=== PATIENT | female | born 1950 | race African-American/Black ===

== ENCOUNTER 2017-07-31 06:49 | Inpatient (IN) | payer MEDICARE, MEDICAID ==
[2017-07-31] VITALS (8 sets, daily range): BP systolic 109–129; BP diastolic 67–87
[~2017-07-31] VITALS: Ht 160 cm; Wt 100.8 kg
[~2017-07-31 06:49] MED LIST: AMLO5TAB88 PO; ASPI-867 PO; CARV3.1242 PO; CELE200C; CLOP75TA16 PO; DOCU-150 PO; HYDR25SU7 RC; OLME40TA12 PO; OMEP40CA34 PO; SENN8.6T71 PO
[2017-07-31] MEDS ORDERED: ASPIRIN 325MG EC TABLET PO ONE (07:45)
[2017-07-31 08:04] LABS: BASOPHILS % 0.6 % (0.0-2.0); EOSINOPHILS % 1.2 % (0.0-5.0); HEMATOCRIT. 34.9 % (36.0-48.0); HEMOGLOBIN. 11.1 g/dL (12.0-16.0); LYMPHOCYTES % 13.1 % (20.0-50.0); MEAN CORPUSCULAR HEMOGLOBIN 27.4 pg (28.0-32.0); MEAN CORPUSCULAR VOLUME 86.2 fL (81.0-99.0); MEAN PLATELET VOLUME 9.7 fl (7.4-10.4); MONOCYTES % 7.2 % (2.0-8.0); NEUTROPHILS % 77.9 % (40.0-76.0); PLATELET 170 x1000/uL (130-400); RED BLOOD CELL COUNT 4.06 mill/uL (4.2-5.4)
[2017-07-31 08:11] LABS: PROTHROMBIN TIME 10.6 sec (9.4-11.6)
[2017-07-31 08:19] LABS: CARBON DIOXIDE 25 mEq/L (21-32); CHLORIDE 111 mEq/L (98-107)
[2017-07-31] MEDS ORDERED: IODIXANOL 320MG/ML 100 ML BOTTLE IV ONE ×2 (10:29→11:48)
[2017-07-31] MEDS ORDERED: LIDOCAINE HCL 1% 20ML VIAL (Pyxis) INJ ONE (10:30)
[2017-07-31] MEDS ORDERED: HYDRALAZINE 20MG/ML VIAL ONE (11:03)
[2017-07-31] MEDS ORDERED: FENTANYL CITRATE/PF 50MCG/ML 2ML VIAL ONE (11:05)
[2017-07-31] MEDS ORDERED: MIDAZOLAM HCL 2 MG/2 ML VIAL ONE (11:05)
[2017-07-31] MEDS ORDERED: IOVERSOL 240MG/ML 100ML BOTTLE IV ONE (11:30)
[2017-07-31] MEDS ORDERED: ATROPINE SULFATE 0.1MG/ML 10ML DISP.SYRIN ONE (11:35)
[2017-07-31] MEDS ORDERED: ATROPINE SULFATE 1MG/10ML SYR IV PRN (13:00)
[2017-07-31] MEDS ORDERED: ONDANSETRON HCL 4MG/2ML VIAL IV PRN (13:00)
[2017-07-31] MEDS ORDERED: CLOPIDOGREL 75MG TABLET PO ONE (13:00)
[2017-07-31] MEDS ORDERED: MORPHINE SULFATE 2 MG/ML CPJ (NOT FOR IM USE) IV PRN (13:00)
[2017-07-31] MEDS ORDERED: ACETAMINOPHEN 325MG TABLET PO PRN (13:00)
[2017-07-31] MEDS ORDERED: SODIUM CHLORIDE 0.45% 1,000 ML IV ONE (13:30)
[2017-07-31] MEDS ORDERED: LOSARTAN POTASSIUM 25 MG TABLET PO SCH (13:30)
[2017-07-31] MEDS ORDERED: NICARDIPINE 100MCG/ML 10ML VIAL (CATH LAB) IV ONE (15:13)
[2017-07-31] MEDS ORDERED: HEPARIN SODIUM 1,000 UNIT/1ML VIAL IV ONE (15:13)
[2017-07-31] MEDS ORDERED: NITROGLYCERIN 50MCG/ML 10ML VIAL (CATH LAB) IV ONE (15:13)
[2017-07-31] MEDS: LOSARTAN POTASSIUM 50 MG TABLET PO SCH (15:31)
[2017-07-31] MEDS: NEBIVOLOL HCL 5 MG TABLET PO SCH ×2 (15:43→20:46)
[2017-07-31] MEDS: AMLODIPINE 2.5MG TABLET PO SCH (20:46)
[2017-07-31] MEDS ORDERED: ATORVASTATIN CALCIUM 20MG TABLET PO SCH ×2 (21:00)
[2017-08-01] VITALS (10 sets, daily range): BP systolic 123–156; BP diastolic 59–87
[2017-08-01 05:48] LABS: CARBON DIOXIDE 26 mEq/L (21-32); CHLORIDE 110 mEq/L (98-107); CREATINE KINASE 77 IU/L (26-192); CREATINE KINASE MB FRACTION 2.6 ng/mL (0.5-3.6)
[2017-08-01 06:11] LABS: HDL CHOLESTEROL 47 mg/dL (40-59); LDL CHOLESTEROL 66 mg/dL (5-100)
[2017-08-01 06:23] LABS: BASOPHILS % 0.4 % (0.0-2.0); EOSINOPHILS % 1.3 % (0.0-5.0); HEMATOCRIT. 32.2 % (36.0-48.0); HEMOGLOBIN. 10.5 g/dL (12.0-16.0); LYMPHOCYTES % 19.5 % (20.0-50.0); MEAN CORPUSCULAR HEMOGLOBIN 28.1 pg (28.0-32.0); MEAN CORPUSCULAR VOLUME 86.4 fL (81.0-99.0); MONOCYTES % 9.9 % (2.0-8.0); NEUTROPHILS % 68.9 % (40.0-76.0); RED BLOOD CELL COUNT 3.73 mill/uL (4.2-5.4)
[2017-08-01 07:11] LABS: TROPONIN I 0.56 ng/mL (0.00-0.04)
[2017-08-01] MEDS: LOSARTAN POTASSIUM 50 MG TABLET PO SCH (08:46)
[2017-08-01] MEDS: NEBIVOLOL HCL 5 MG TABLET PO SCH (08:46)
[2017-08-01] MEDS: AMLODIPINE 2.5MG TABLET PO SCH (08:46)
[2017-08-01] MEDS ORDERED: CLOPIDOGREL 75MG TABLET PO SCH (09:00)
[2017-08-01] MEDS ORDERED: NEBIVOLOL HCL 5 MG TABLET PO SCH (09:00)
[2017-08-01] MEDS ORDERED: ASPIRIN 325MG TABLET PO SCH (09:00)
[2017-08-01 11:06] LABS: PLATELET 56 x1000/uL (130-400)
[2017-08-01] MEDS ORDERED: MAGNESIUM 2 G PREMIX 50 ML IV NR (12:30)
== END 2017-08-01 15:30 | disposition home or self-care (01) | DRG 247 ==
LOC: ER 06:49 → 3WST 06:50 → EDBEDREQTM 08:51 → EDBEDREQ 08:51 → ENRESERV 09:16
PROVIDERS: ADMIT Specialist; ATTEND Specialist
PROC: 027035Z Dilation of Coronary Artery, One Artery with Two Drug-eluting Intraluminal Devices, Percutaneous Approach (ICD-10-PCS; principal; 2017-07-31)
PROC: 4A023N7 Measurement of Cardiac Sampling and Pressure, Left Heart, Percutaneous Approach (ICD-10-PCS; 2017-07-31)
PROC: B2111ZZ Fluoroscopy of Multiple Coronary Arteries using Low Osmolar Contrast (ICD-10-PCS; 2017-07-31)
DX: I21.4 Non-ST elevation (NSTEMI) myocardial infarction (principal); E46 Unspecified protein-calorie malnutrition; D69.6 Thrombocytopenia, unspecified; I25.10 Atherosclerotic heart disease of native coronary artery without angina pectoris; D50.9 Iron deficiency anemia, unspecified; E66.9 Obesity, unspecified; E78.00 Pure hypercholesterolemia, unspecified; I11.9 Hypertensive heart disease without heart failure; I34.0 Nonrheumatic mitral (valve) insufficiency; Z96.649 Presence of unspecified artificial hip joint; K57.90 Diverticulosis of intestine, part unspecified, without perforation or abscess without bleeding; Z90.49 Acquired absence of other specified parts of digestive tract; Z79.82 Long term (current) use of aspirin; I25.2 Old myocardial infarction; Z98.61 Coronary angioplasty status; Z79.899 Other long term (current) drug therapy; Z88.0 Allergy status to penicillin; Z90.89 Acquired absence of other organs; Z68.39 Body mass index [BMI] 39.0-39.9, adult
CPT/HCPCS: 36415; 71010; 80053; 80061; 82550; 82553; 83735; 83880; 84484; 85025; 85049; 85347; 85379; 85610; 92928; 93005; 93458; 99285; C1725; C1769; C1887; C1893; J0360; J0461; J1644; J2250; J2270; J3010; J3475; J3490; J7050; Q9967

== ENCOUNTER 2021-10-23 14:21 | Inpatient (IN) | payer MEDICARE, MEDICAID ==
[~2021-10-23] VITALS: Ht 160 cm; Wt 84.4 kg
[~2021-10-23 14:21] MED LIST changes: -ASPI-867 PO; +CLOP-31 PO; -CLOP75TA16 PO; +OLME40TA11 PO; -OLME40TA12 PO; +OMEP40CA20 PO; -OMEP40CA34 PO
[2021-10-23] MEDS ORDERED: SODIUM CHLORIDE 0.9% 1000ML BAG (SEPSIS BOLUS) IV ONE (14:45)
[2021-10-23 15:57] LABS: CHLORIDE 110 mEq/L (98-107)
[2021-10-23 16:01] LABS: ETHANOL BLOOD < 10 mg/dL
[2021-10-23 16:05] LABS: MEAN CORPUSCULAR HEMOGLOBIN 26.8 pg (28.0-32.0); MEAN CORPUSCULAR VOLUME 85.9 fL (81.0-99.0); MEAN PLATELET VOLUME 8.4 fl (7.4-10.4); PLATELET 143 x1000/uL (130-400); RED BLOOD CELL COUNT 2.47 mill/uL (4.2-5.4); RED CELL DISTRIBUTION WIDTH 16.5 % (11.6-14.6)
[2021-10-23 16:15] LABS: HEMATOCRIT. 21.2 % (36.0-48.0); HEMOGLOBIN. 6.6 g/dL (12.0-16.0)
[2021-10-23] MEDS ORDERED: LEVOFLOXACIN 750MG PREMIX 150 ML IV ONE (16:30)
[2021-10-23] MEDS ORDERED: METRONIDAZOLE 500 MG PREMIX 100 ML IV ONE (16:30)
[2021-10-23 18:02] LABS: PLATELET ESTIMATE NORMAL
[2021-10-23] MEDS ORDERED: ACETAMINOPHEN 650MG SUPP PR PRN ×2 (19:00)
[2021-10-23] MEDS ORDERED: ACETAMINOPHEN 325MG TABLET PO PRN (19:00)
[2021-10-23] MEDS ORDERED: DOCUSATE SODIUM 100MG CAPSULE PO PRN (19:00)
[2021-10-23] MEDS ORDERED: IPRATROPIUM/ALBUTEROL 0.5-3(2.5)MG/3ML NEB HHN PRN (19:00)
[2021-10-23] MEDS ORDERED: GUAIFENESIN 200MG/10ML SUGAR FREE UDC PO PRN (19:00)
[2021-10-23] MEDS ORDERED: CLONIDINE 0.1MG TABLET PO PRN (19:00)
[2021-10-23] MEDS ORDERED: ONDANSETRON HCL 4MG/2ML INJ IV PRN (19:00)
[2021-10-23] MEDS ORDERED: DIPHENHYDRAMINE 50MG/ML VIAL IV PRN (19:00)
[2021-10-23] MEDS ORDERED: MAGNESIUM/ALUMINUM HYDROXIDE/SIMETHICONE 30ML UDC PO PRN (19:00)
[2021-10-23] MEDS ORDERED: NALOXONE HCL 0.4MG/ML VIAL IV PRN (19:30)
[2021-10-23] MEDS ORDERED: LEVOFLOXACIN 500MG PREMIX 100 ML IV NR (20:00)
[2021-10-23 21:30] VITALS: BP 126/69
[2021-10-23] MEDS ORDERED: METRONIDAZOLE 500 MG PREMIX 100 ML IV SCH (22:00)
[2021-10-24] VITALS (12 sets, daily range): BP systolic 110–146; BP diastolic 58–80
[2021-10-24] MEDS ORDERED: INFLUENZA VACCINE 05/PF 0.5 ML SYRINGE IM ONE (00:30)
[2021-10-24] MEDS ORDERED: PNEUMOCOCCAL 23-VAL P-SAC VAC 0.5 ML IM ONE (00:45)
[2021-10-24] MEDS: METRONIDAZOLE 500 MG PREMIX 100 ML IV SCH ×4 (01:06→21:32)
[2021-10-24] MEDS ORDERED: IOHEXOL-350 100 ML BOTTLE ONE (04:39)
[2021-10-24] MEDS ORDERED: IOHEXOL-300 100 ML BOTTLE ONE (04:40)
[2021-10-24] MEDS: ACETAMINOPHEN 325MG TABLET PO PRN (06:21)
[2021-10-24 07:10] LABS: CHLORIDE 112 mEq/L (98-107)
[2021-10-24 07:17] LABS: BASOPHILS % 0.4 % (0.0-2.0); EOSINOPHILS % 0.8 % (0.0-5.0); HEMATOCRIT. 24.6 % (36.0-48.0); HEMOGLOBIN. 8.2 g/dL (12.0-16.0); LYMPHOCYTES % 10.5 % (20.0-50.0); MEAN CORPUSCULAR HEMOGLOBIN 28.5 pg (28.0-32.0); MEAN CORPUSCULAR VOLUME 85.4 fL (81.0-99.0); MEAN PLATELET VOLUME 9.8 fl (7.4-10.4); MONOCYTES % 10.4 % (2.0-8.0); NEUTROPHILS % 77.9 % (40.0-76.0); PLATELET 209 x1000/uL (130-400); RED BLOOD CELL COUNT 2.88 mill/uL (4.2-5.4); RED CELL DISTRIBUTION WIDTH 15.6 % (11.6-14.6)
[2021-10-24 07:18] LABS: LDL CHOLESTEROL 65 mg/dL (5-100)
[2021-10-24 07:19] LABS: CREATINE KINASE 104 IU/L (26-192)
[2021-10-24 07:21] LABS: HDL CHOLESTEROL 58 mg/dL (40-59)
[2021-10-24] MEDS: LEVOFLOXACIN 250MG PREMIX 50 ML IV SCH (10:55)
[2021-10-24] MEDS: MORPHINE SULFATE 2 MG/ML CPJ (NOT FOR IM USE) IV PRN (11:00)
[2021-10-24] MEDS ORDERED: LEVOFLOXACIN 250MG PREMIX 50 ML IV SCH (11:00)
[2021-10-24] MEDS ORDERED: POTASSIUM CHLORIDE 20MEQ TABLET SR PO NR (13:15)
[2021-10-24] MEDS: PANTOPRAZOLE SODIUM 40 MG/VIAL IV SCH (18:23)
[2021-10-24 20:33] LABS: HEMOGLOBIN 7.9 g/dL (12.0-16.0)
[2021-10-24 21:29] LABS: VITAMIN B12 SERUM >2000 pg/mL pg/mL (211-911)
[2021-10-24] MEDS: ATORVASTATIN CALCIUM 20MG TABLET PO SCH (21:32)
[2021-10-24 21:36] LABS: FERRITIN 7 ng/mL (10-291)
[2021-10-25] VITALS (16 sets, daily range): BP systolic 103–144; BP diastolic 45–96
[2021-10-25 01:27] LABS: HEMATOCRIT 22.8 % (36.0-48.0); HEMOGLOBIN 7.6 g/dL (12.0-16.0)
[2021-10-25] MEDS: MORPHINE SULFATE 2 MG/ML CPJ (NOT FOR IM USE) IV PRN ×2 (06:04→23:55)
[2021-10-25] MEDS: METRONIDAZOLE 500 MG PREMIX 100 ML IV SCH ×3 (06:04→21:46)
[2021-10-25 06:45] LABS: BASOPHILS % 0.3 % (0.0-2.0); EOSINOPHILS % 1.6 % (0.0-5.0); HEMATOCRIT. 22.7 % (36.0-48.0); HEMOGLOBIN. 7.5 g/dL (12.0-16.0); LYMPHOCYTES % 15.1 % (20.0-50.0); MEAN CORPUSCULAR HEMOGLOBIN 28.2 pg (28.0-32.0); MEAN CORPUSCULAR VOLUME 85.1 fL (81.0-99.0); MONOCYTES % 12.6 % (2.0-8.0); NEUTROPHILS % 70.4 % (40.0-76.0); RED BLOOD CELL COUNT 2.66 mill/uL (4.2-5.4); RED CELL DISTRIBUTION WIDTH 15.9 % (11.6-14.6)
[2021-10-25 06:52] LABS: CHLORIDE 113 mEq/L (98-107)
[2021-10-25 07:06] LABS: TOTAL IRON BINDING CAPACITY 268 ug/dL (250-450)
[2021-10-25] MEDS: PANTOPRAZOLE SODIUM 40 MG/VIAL IV SCH ×2 (08:49→21:44)
[2021-10-25] MEDS: LEVOFLOXACIN 250MG PREMIX 50 ML IV SCH (13:19)
[2021-10-25] MEDS: ACETAMINOPHEN 325MG TABLET PO PRN (13:21)
[2021-10-25 14:25] LABS: HEMATOCRIT 26.6 % (36.0-48.0); HEMOGLOBIN 8.4 g/dL (12.0-16.0)
[2021-10-25 20:52] LABS: HEMATOCRIT 29.3 % (36.0-48.0); HEMOGLOBIN 9.6 g/dL (12.0-16.0)
[2021-10-25] MEDS: ATORVASTATIN CALCIUM 20MG TABLET PO SCH (21:44)
[2021-10-26] VITALS (11 sets, daily range): BP systolic 97–162; BP diastolic 56–111
[2021-10-26 00:51] LABS: HEMATOCRIT 27.9 % (36.0-48.0); HEMOGLOBIN 9.3 g/dL (12.0-16.0)
[2021-10-26] MEDS: METRONIDAZOLE 500 MG PREMIX 100 ML IV SCH ×3 (05:37→21:38)
[2021-10-26 06:33] LABS: BASOPHILS % 0.4 % (0.0-2.0); EOSINOPHILS % 1.9 % (0.0-5.0); HEMATOCRIT. 27.6 % (36.0-48.0); HEMOGLOBIN. 9.3 g/dL (12.0-16.0); LYMPHOCYTES % 11.3 % (20.0-50.0); MEAN CORPUSCULAR HEMOGLOBIN 28.2 pg (28.0-32.0); MEAN CORPUSCULAR VOLUME 83.7 fL (81.0-99.0); NEUTROPHILS % 76.4 % (40.0-76.0); RED BLOOD CELL COUNT 3.29 mill/uL (4.2-5.4); RED CELL DISTRIBUTION WIDTH 15.8 % (11.6-14.6)
[2021-10-26 06:42] LABS: CHLORIDE 111 mEq/L (98-107)
[2021-10-26] MEDS: PANTOPRAZOLE SODIUM 40 MG/VIAL IV SCH ×2 (10:15→21:38)
[2021-10-26] MEDS: DOCUSATE SODIUM 100MG CAPSULE PO SCH ×2 (10:15→16:06)
[2021-10-26] MEDS: METOCLOPRAMIDE HCL 10MG/2ML VIAL IV SCH ×2 (10:15→13:33)
[2021-10-26] MEDS: IRON SUCROSE COMPLEX 100 MG/5 ML ML IV SCH (10:15)
[2021-10-26] MEDS ORDERED: LEVOFLOXACIN 500MG PREMIX 100 ML IV SCH (11:00)
[2021-10-26 13:56] LABS: HEMATOCRIT 27.5 % (36.0-48.0); HEMOGLOBIN 9.2 g/dL (12.0-16.0)
[2021-10-26] MEDS ORDERED: POTASSIUM CHLORIDE 20MEQ TABLET SR PO NR (15:15)
[2021-10-26] MEDS ORDERED: KCL 20MEQ/100ML PREMIX 100 ML IV SCH (16:00)
[2021-10-26 19:40] LABS: T4 FREE 0.96 ng/dL (0.76-1.46)
[2021-10-26] MEDS: ATORVASTATIN CALCIUM 20MG TABLET PO SCH (21:38)
[2021-10-27] VITALS (7 sets, daily range): BP systolic 129–145; BP diastolic 58–84
[2021-10-27] MEDS: ACETAMINOPHEN 325MG TABLET PO PRN ×3 (00:03→07:47)
[2021-10-27] MEDS: METRONIDAZOLE 500 MG PREMIX 100 ML IV SCH (05:20)
[2021-10-27 06:31] LABS: CHLORIDE 110 mEq/L (98-107)
[2021-10-27] MEDS: PANTOPRAZOLE SODIUM 40 MG/VIAL IV SCH (09:16)
[2021-10-27] MEDS: IRON SUCROSE COMPLEX 100 MG/5 ML ML IV SCH (09:16)
[2021-10-27] MEDS: DOCUSATE SODIUM 100MG CAPSULE PO SCH (09:16)
[2021-10-27 12:06] LABS: BASOPHILS % 0.3 % (0.0-2.0); EOSINOPHILS % 1.6 % (0.0-5.0); HEMOGLOBIN. 10.9 g/dL (12.0-16.0); LYMPHOCYTES % 9.7 % (20.0-50.0); MEAN CORPUSCULAR HEMOGLOBIN 27.3 pg (28.0-32.0); MEAN CORPUSCULAR VOLUME 85.2 fL (81.0-99.0); NEUTROPHILS % 79.4 % (40.0-76.0); RED BLOOD CELL COUNT 3.99 mill/uL (4.2-5.4); RED CELL DISTRIBUTION WIDTH 16.1 % (11.6-14.6)
[2021-10-27] MEDS ORDERED: LEVO500T89 MT (13:26)
[2021-10-27] MEDS ORDERED: ATOR20TA PO (13:26)
[2021-10-27] MEDS ORDERED: METR-167 MT (13:26)
== END 2021-10-27 18:30 | disposition home health service (06) | DRG 871 ==
LOC: ER 14:35 → EDBEDREQ 17:44 → EDBEDREQTM 17:44 → ENRESERV 20:20 → EDBEDREQ 22:04 → 5EST 22:21
PROVIDERS: ADMIT Specialist; ATTEND Specialist
PROC: 02HV33Z Insertion of Infusion Device into Superior Vena Cava, Percutaneous Approach (ICD-10-PCS; 2021-10-24)
PROC: 30233N1 Transfusion of Nonautologous Red Blood Cells into Peripheral Vein, Percutaneous Approach (ICD-10-PCS; principal; 2021-10-25)
DX: A41.9 Sepsis, unspecified organism (principal); K57.33 Diverticulitis of large intestine without perforation or abscess with bleeding; G92.8 Other toxic encephalopathy; D62 Acute posthemorrhagic anemia; E46 Unspecified protein-calorie malnutrition; G45.9 Transient cerebral ischemic attack, unspecified; E66.9 Obesity, unspecified; E78.5 Hyperlipidemia, unspecified; E87.6 Hypokalemia; E88.09 Other disorders of plasma-protein metabolism, not elsewhere classified; I25.10 Atherosclerotic heart disease of native coronary artery without angina pectoris; I72.0 Aneurysm of carotid artery; K44.9 Diaphragmatic hernia without obstruction or gangrene; L50.9 Urticaria, unspecified; M43.16 Spondylolisthesis, lumbar region; M48.061 Spinal stenosis, lumbar region without neurogenic claudication; Z96.643 Presence of artificial hip joint, bilateral; I34.0 Nonrheumatic mitral (valve) insufficiency; T68.XXXA Hypothermia, initial encounter; D50.9 Iron deficiency anemia, unspecified; D69.6 Thrombocytopenia, unspecified; E78.00 Pure hypercholesterolemia, unspecified; R26.89 Other abnormalities of gait and mobility; Z20.822 Contact with and (suspected) exposure to COVID-19; M54.10 Radiculopathy, site unspecified; M75.01 Adhesive capsulitis of right shoulder; R53.81 Other malaise; M54.2 Cervicalgia; I49.3 Ventricular premature depolarization; I25.2 Old myocardial infarction; Z88.0 Allergy status to penicillin; Z90.49 Acquired absence of other specified parts of digestive tract; Z95.5 Presence of coronary angioplasty implant and graft; Z79.899 Other long term (current) drug therapy; Z68.32 Body mass index [BMI] 32.0-32.9, adult; Z82.49 Family history of ischemic heart disease and other diseases of the circulatory system; I11.9 Hypertensive heart disease without heart failure; R55 Syncope and collapse; Z87.19 Personal history of other diseases of the digestive system
CPT/HCPCS: 36415; 70496; 70498; 70551; 71045; 72141; 73030; 74177; 76937; 78278; 80048; 80053; 80061; 80320; 82140; 82270; 82550; 82607; 82728; 82746; 82962; 83036; 83540; 83550; 83605; 83735; 83880; 84145; 84439; 84443; 84481; 84484; 85014; 85018; 85025; 85044; 86850; 86900; 86920; 87426; 90732; 93005; 93306; 93880; 97116; 97162; 97165; 97535; 99291; A9560; C1725; C1893; C9113; J1956; J2270; J2765; J3480; J3490; J7030; P9016; P9021; Q9967; G0480

== ENCOUNTER 2022-12-11 09:56 | Inpatient (IN) | payer BC, MEDICAID ==
[~2022-12-11] VITALS: Ht 160 cm; Wt 90.3 kg
[~2022-12-11 09:56] MED LIST changes: +ATOR20TA PO; -CARV3.1242 PO; -CELE200C; -CLOP-31 PO; -DOCU-150 PO; -HYDR25SU7 RC; +LEVO-65 MT; +METR-167 MT; -SENN8.6T71 PO
[2022-12-11] MEDS ORDERED: SODIUM CHLORIDE 0.9% 1,000 ML IV ONE (10:15)
[2022-12-11 11:10] LABS: CHLORIDE 110 mEq/L (98-107)
[2022-12-11 11:20] LABS: PROTHROMBIN TIME 11.1 sec (9.6-11.0)
[2022-12-11 11:22] LABS: BASOPHILS % 0.2 % (0.0-2.0); EOSINOPHILS % 0.5 % (0.0-5.0); HEMOGLOBIN. 8.2 g/dL (12.0-16.0); LYMPHOCYTES % 9.1 % (20.0-50.0); MEAN CORPUSCULAR HEMOGLOBIN 29.4 pg (28.0-32.0); MEAN CORPUSCULAR VOLUME 89.9 fL (81.0-99.0); MEAN PLATELET VOLUME 9.9 fl (7.4-10.4); NEUTROPHILS % 84.2 % (40.0-76.0); PLATELET 154 x1000/uL (130-400); RED BLOOD CELL COUNT 2.78 mill/uL (4.2-5.4); RED CELL DISTRIBUTION WIDTH 15.7 % (11.6-14.6)
[2022-12-11] MEDS ORDERED: ACETAMINOPHEN 325MG TABLET PO ONE (12:30)
[2022-12-11 20:00] VITALS: BP 87/48
[2022-12-11] MEDS ORDERED: METH-773 PO (20:07)
[2022-12-11] MEDS ORDERED: AMLO-504 PO (20:07)
[2022-12-11] MEDS ORDERED: CLOP75TA33 PO (20:07)
[2022-12-11] MEDS ORDERED: SULF1TAB44 PO (20:07)
[2022-12-11] MEDS ORDERED: ATOR20TA65 PO (20:07)
[2022-12-11] MEDS ORDERED: NEBI10TA12 PO (20:07)
[2022-12-11] MEDS ORDERED: NAPR-681 PO (20:07)
[2022-12-11] MEDS ORDERED: CYCL5TAB PO (20:07)
[2022-12-11] MEDS ORDERED: IPRATROPIUM/ALBUTEROL 0.5-3(2.5)MG/3ML NEB HHN PRN (21:30)
[2022-12-11] MEDS ORDERED: ACETAMINOPHEN 325MG TABLET PO PRN ×2 (21:30)
[2022-12-11] MEDS ORDERED: ONDANSETRON HCL 4MG/2ML INJ IV PRN (21:30)
[2022-12-11] MEDS ORDERED: NALOXONE HCL 0.4MG/ML VIAL IV PRN (21:45)
[2022-12-11 21:48] LABS: TOTAL IRON BINDING CAPACITY 285 ug/dL (250-450)
[2022-12-11] MEDS: PANTOPRAZOLE SODIUM 40 MG/VIAL IV SCH (21:57)
[2022-12-11] MEDS: SODIUM CHLORIDE 0.45% 1,000 ML IV SCH (22:05)
[2022-12-11 22:14] LABS: BASOPHILS % 0.3 % (0.0-2.0); EOSINOPHILS % 0.7 % (0.0-5.0); HEMATOCRIT. 23.5 % (36.0-48.0); HEMOGLOBIN. 7.7 g/dL (12.0-16.0); MEAN CORPUSCULAR HEMOGLOBIN 29.1 pg (28.0-32.0); MEAN CORPUSCULAR VOLUME 88.9 fL (81.0-99.0); MEAN PLATELET VOLUME 9.5 fl (7.4-10.4); MONOCYTES % 7.9 % (2.0-8.0); NEUTROPHILS % 77.1 % (40.0-76.0); PLATELET 199 x1000/uL (130-400); RED BLOOD CELL COUNT 2.64 mill/uL (4.2-5.4); RED CELL DISTRIBUTION WIDTH 15.7 % (11.6-14.6)
[2022-12-11 22:18] LABS: CREATINE KINASE MB FRACTION 1.1 ng/mL (0.5-3.6)
[2022-12-12] VITALS (10 sets, daily range): BP systolic 104–128; BP diastolic 40–77
[2022-12-12] MEDS: HYDROCODONE/ACETAMINOPHEN 5/325MG TABLET PO PRN ×2 (03:42→09:55)
[2022-12-12 06:22] LABS: BASOPHILS % 0.3 % (0.0-2.0); EOSINOPHILS % 1.3 % (0.0-5.0); HEMATOCRIT. 23.8 % (36.0-48.0); LYMPHOCYTES % 16.1 % (20.0-50.0); MEAN CORPUSCULAR HEMOGLOBIN 29.8 pg (28.0-32.0); MEAN CORPUSCULAR VOLUME 88.8 fL (81.0-99.0); MEAN PLATELET VOLUME 9.9 fl (7.4-10.4); NEUTROPHILS % 72.3 % (40.0-76.0); PLATELET 154 x1000/uL (130-400); RED BLOOD CELL COUNT 2.68 mill/uL (4.2-5.4); RED CELL DISTRIBUTION WIDTH 15.1 % (11.6-14.6)
[2022-12-12 06:24] LABS: CHLORIDE 112 mEq/L (98-107)
[2022-12-12] MEDS: PANTOPRAZOLE SODIUM 40 MG/VIAL IV SCH (09:40)
[2022-12-12] MEDS: SODIUM CHLORIDE 0.45% 1,000 ML IV SCH ×2 (11:31→22:01)
[2022-12-12] MEDS ORDERED: NEBI5TAB3 MT (12:02)
[2022-12-12] MEDS ORDERED: ASPI-986 PO (12:05)
[2022-12-12 13:06] LABS: HEMOGLOBIN 8.1 g/dL (12.0-16.0)
[2022-12-12] MEDS ORDERED: CLON0.2T MT (13:06)
[2022-12-12] MEDS: IRON SUCROSE COMPLEX 100 MG/5 ML ML IV SCH (13:37)
[2022-12-12 14:53] LABS: VITAMIN B12 SERUM 1984 pg/mL (211-911)
[2022-12-12] MEDS: ATORVASTATIN CALCIUM 20MG TABLET PO SCH (22:02)
[2022-12-13] VITALS (7 sets, daily range): BP systolic 121–167; BP diastolic 64–86
[2022-12-13] MEDS: HYDROCODONE/ACETAMINOPHEN 5/325MG TABLET PO PRN (04:27)
[2022-12-13 06:42] LABS: CHLORIDE 113 mEq/L (98-107)
[2022-12-13 06:50] LABS: EOSINOPHILS % 2.1 % (0.0-5.0); HEMOGLOBIN. 7.5 g/dL (12.0-16.0); LYMPHOCYTES % 16.1 % (20.0-50.0); MEAN CORPUSCULAR HEMOGLOBIN 29.4 pg (28.0-32.0); MEAN CORPUSCULAR VOLUME 90.1 fL (81.0-99.0); MEAN PLATELET VOLUME 9.8 fl (7.4-10.4); MONOCYTES % 9.8 % (2.0-8.0); PROTHROMBIN TIME 10.9 sec (9.6-11.0); RED BLOOD CELL COUNT 2.55 mill/uL (4.2-5.4); RED CELL DISTRIBUTION WIDTH 15.2 % (11.6-14.6)
[2022-12-13] MEDS: PANTOPRAZOLE SODIUM 40 MG/VIAL IV SCH (09:22)
[2022-12-13] MEDS: IRON SUCROSE COMPLEX 100 MG/5 ML ML IV SCH (13:53)
[2022-12-13] MEDS: SODIUM CHLORIDE 0.45% 1,000 ML IV SCH ×2 (14:00→21:51)
[2022-12-13] MEDS: ATORVASTATIN CALCIUM 20MG TABLET PO SCH (21:51)
[2022-12-14] VITALS: BP 134/79
[2022-12-14 04:00] VITALS: BP 136/78
[2022-12-14 06:43] LABS: BASOPHILS % 0.4 % (0.0-2.0); EOSINOPHILS % 1.5 % (0.0-5.0); HEMATOCRIT. 25.1 % (36.0-48.0); HEMOGLOBIN. 8.4 g/dL (12.0-16.0); LYMPHOCYTES % 14.1 % (20.0-50.0); MEAN CORPUSCULAR HEMOGLOBIN 29.7 pg (28.0-32.0); MEAN CORPUSCULAR VOLUME 89.3 fL (81.0-99.0); MEAN PLATELET VOLUME 9.9 fl (7.4-10.4); MONOCYTES % 10.7 % (2.0-8.0); NEUTROPHILS % 73.3 % (40.0-76.0); PLATELET 126 x1000/uL (130-400); RED BLOOD CELL COUNT 2.81 mill/uL (4.2-5.4); RED CELL DISTRIBUTION WIDTH 14.9 % (11.6-14.6)
[2022-12-14 07:16] LABS: CHLORIDE 113 mEq/L (98-107)
[2022-12-14 08:00] VITALS: BP 121/61
[2022-12-14] MEDS: PANTOPRAZOLE SODIUM 40 MG/VIAL IV SCH (09:01)
[2022-12-14 12:00] VITALS: BP 123/70
[2022-12-14] MEDS ORDERED: ASPIRIN 81MG TABLET PO SCH (12:30)
[2022-12-14] MEDS: IRON SUCROSE COMPLEX 100 MG/5 ML ML IV SCH (14:45)
[2022-12-14 16:00] VITALS: BP 130/67
[2022-12-14 17:17] VITALS: BP 130/67
== END 2022-12-14 18:48 | disposition home or self-care (01) | DRG 378 ==
LOC: ER 10:43 → 7WST 11:50 → EDBEDREQTM 11:52 → EDBEDREQ 11:52
PROVIDERS: ADMIT Internal Medicine; ATTEND Internal Medicine
PROC: B54NZZA Ultrasonography of Left Upper Extremity Veins, Guidance (ICD-10-PCS; 2022-12-11)
PROC: 05HY33Z Insertion of Infusion Device into Upper Vein, Percutaneous Approach (ICD-10-PCS; 2022-12-11)
PROC: 30233N1 Transfusion of Nonautologous Red Blood Cells into Peripheral Vein, Percutaneous Approach (ICD-10-PCS; principal; 2022-12-12)
DX: K57.91 Diverticulosis of intestine, part unspecified, without perforation or abscess with bleeding (principal); E44.1 Mild protein-calorie malnutrition; I25.10 Atherosclerotic heart disease of native coronary artery without angina pectoris; E66.9 Obesity, unspecified; E78.5 Hyperlipidemia, unspecified; I10 Essential (primary) hypertension; D50.9 Iron deficiency anemia, unspecified; K64.9 Unspecified hemorrhoids; Z68.35 Body mass index [BMI] 35.0-35.9, adult; Z88.0 Allergy status to penicillin; Z90.49 Acquired absence of other specified parts of digestive tract; I25.2 Old myocardial infarction; Z79.02 Long term (current) use of antithrombotics/antiplatelets; Z79.82 Long term (current) use of aspirin; Z79.899 Other long term (current) drug therapy; Z87.891 Personal history of nicotine dependence; Z96.649 Presence of unspecified artificial hip joint
CPT/HCPCS: 36415; 36573; 74176; 80048; 80053; 82553; 82607; 82728; 82746; 83540; 83550; 84484; 85018; 85025; 85044; 86850; 86900; 86920; 93005; 99285; C1725; C1893; C9113; J7030; P9016

== ENCOUNTER 2024-10-21 22:38 | Inpatient (IN) | payer OTHER, MEDICAID, MEDICARE ==
[~2024-10-21] VITALS: Ht 165.1 cm; Wt 85.9 kg
[~2024-10-21 22:38] MED LIST changes: -AMLO5TAB88 PO; +ASPI-1160 PO; -ATOR20TA PO; +CLON0.2T MT; +CLOP-31 PO; -LEVO-65 MT; +LIP40 PO; +LOSA25TA26 PO; +METH-773 PO; -METR-167 MT; -OLME40TA11 PO; -OMEP40CA20 PO
[2024-10-21 23:43] LABS: CHLORIDE 109 mEq/L (98-107); POTASSIUM 3.5 mEq/L (3.5-5.1); SODIUM 143 mEq/L (136-145)
[2024-10-21 23:44] LABS: BASOPHILS % 0.4 % (0.0-2.0); CALCIUM 8.3 mg/dL (8.7-10.4); CARBON DIOXIDE 25 mEq/L (21-32); DIFFERENTIAL COMMENT 0; EOSINOPHILS % 2.2 % (0.0-5.0); LYMPHOCYTES % 7.5 % (20.0-50.0); MEAN CORPUSCULAR HEMOGLOBIN 22.1 pg (28.0-32.0); MEAN CORPUSCULAR HGB CONC 30.3 g/dL (31.0-37.0); MEAN CORPUSCULAR VOLUME 72.9 fL (81.0-99.0); MEAN PLATELET VOLUME 9.4 fl (7.4-10.4); MONOCYTES % 8.4 % (2.0-8.0); NEUTROPHILS % 81.5 % (40.0-76.0); PLATELET 254 x1000/uL (130-400); RED BLOOD CELL COUNT 2.51 mill/uL (4.2-5.4); RED CELL DISTRIBUTION WIDTH 19.9 % (11.6-14.6); WHITE BLOOD COUNT 10.9 x1000/uL (4.5-11.0)
[2024-10-21 23:49] LABS: CREATININE 0.8 mg/dL (0.6-1.0); GLUCOSE 104 mg/dL (70-105); PARTIAL THROMBOPLASTIN TIME 22.5 sec (23.4-31.0); PROTHROMBIN TIME 11.1 sec (9.6-11.0); UREA NITROGEN BLOOD 14 mg/dL (9-23)
[2024-10-21 23:51] LABS: TROPONIN I HIGH SENSITIVITY 15 ng/L (3.0-34)
[2024-10-22 00:01] LABS: ETHANOL BLOOD < 10 mg/dL (<10)
[2024-10-22] MEDS: ACETAMINOPHEN WITH CODEINE 300/30MG TABLET PO NR (00:30)
[2024-10-22] MEDS: FUROSEMIDE 40MG/4ML VIAL IVP NR (00:44)
[2024-10-22 01:04] LABS: HEMATOCRIT. 18.3 % (36.0-48.0); HEMOGLOBIN. 5.5 g/dL (12.0-16.0)
[2024-10-22 01:44] LABS: IRON 9 ug/dL (50-170)
[2024-10-22 01:48] LABS: TOTAL IRON BINDING CAPACITY 263 ug/dl (250-425)
[2024-10-22 02:30] LABS: *AMPHETAMINES SCREEN URINE NEGATIVE (NEGATIVE); *BARBITURATES SCREEN URINE NEGATIVE (NEGATIVE); *BENZODIAZEPINES SCREEN URINE NEGATIVE (NEGATIVE); *COCAINE SCREEN URINE NEGATIVE (NEGATIVE); CANNABINOID URINE SCREEN NEGATIVE (NEGATIVE); ECSTASY MDMA SCREEN URINE NEGATIVE (NEGATIVE); METHADONE URINE SCREEN NEGATIVE (NEGATIVE); OPIATES URINE SCREEN NEGATIVE (NEGATIVE); PHENCYCLIDINE URINE SCREEN NEGATIVE (NEGATIVE)
[2024-10-22] MEDS: HYDROCODONE/ACETAMINOPHEN 5/325MG TABLET PO PRN (15:43)
[2024-10-22 16:40] VITALS: BP 145/89; PULSE 73; RESP 18; TEMP 36.8; TEMP 36.9; O2SAT 96
[2024-10-22] MEDS ORDERED: ZOLPIDEM TARTRATE 5MG TABLET PO PRN (17:00)
[2024-10-22] MEDS ORDERED: ONDANSETRON HCL 4MG/2ML INJ IV PRN ×2 (17:00→20:45)
[2024-10-22] MEDS ORDERED: DIPHENHYDRAMINE 50MG/ML VIAL IV PRN (17:00)
[2024-10-22] MEDS ORDERED: IPRATROPIUM/ALBUTEROL 0.5-3(2.5)MG/3ML NEB HHN PRN (17:00)
[2024-10-22] MEDS ORDERED: NA PHOS,M-B/NA PHOS,DI-BA ENEMA 118ML PR PRN (17:00)
[2024-10-22] MEDS ORDERED: DOCUSATE SODIUM 100MG CAPSULE PO PRN (17:00)
[2024-10-22] MEDS ORDERED: GUAIFENESIN 200MG/10ML SUGAR FREE UDC PO PRN (17:00)
[2024-10-22] MEDS ORDERED: MAGNESIUM/ALUMINUM HYDROXIDE/SIMETHICONE 30ML UDC PO PRN (17:00)
[2024-10-22 20:00] VITALS: BP 140/84; PULSE 66; RESP 18; TEMP 36.9; O2SAT 96
[2024-10-22 20:55] LABS: HEMATOCRIT 23.5 % (36.0-48.0); HEMOGLOBIN 7.3 g/dL (12.0-16.0)
[2024-10-22] MEDS: IPRATROPIUM/ALBUTEROL 0.5-3(2.5)MG/3ML NEB HHN SCH (22:35)
[2024-10-23] VITALS (10 sets, daily range): BP systolic 125–168; BP diastolic 63–95; PULSE 62–92; RESP 16–20; TEMP 36.1–37; O2SAT 96–100
[2024-10-23 01:42] LABS: CREATINE KINASE MB FRACTION 0.8 ng/mL (0.5-3.6)
[2024-10-23 08:07] LABS: BASOPHILS % 0.7 % (0.0-2.0); DIFFERENTIAL COMMENT 0; EOSINOPHILS % 3.5 % (0.0-5.0); HEMOGLOBIN. 7.2 g/dL (12.0-16.0); LYMPHOCYTES % 18.1 % (20.0-50.0); MEAN CORPUSCULAR HEMOGLOBIN 23.1 pg (28.0-32.0); MEAN CORPUSCULAR HGB CONC 31.1 g/dL (31.0-37.0); MEAN CORPUSCULAR VOLUME 74.1 fL (81.0-99.0); MONOCYTES % 9.8 % (2.0-8.0); NEUTROPHILS % 67.9 % (40.0-76.0); PLATELET 209 x1000/uL (130-400); RED CELL DISTRIBUTION WIDTH 20.6 % (11.6-14.6); WHITE BLOOD COUNT 7.9 x1000/uL (4.5-11.0)
[2024-10-23 08:19] LABS: CREATINE KINASE MB FRACTION 0.7 ng/mL (0.5-3.6)
[2024-10-23 08:22] LABS: CHLORIDE 110 mEq/L (98-107); POTASSIUM 3.5 mEq/L (3.5-5.1); SODIUM 146 mEq/L (136-145)
[2024-10-23 08:23] LABS: CALCIUM 8.5 mg/dL (8.7-10.4); CARBON DIOXIDE 27 mEq/L (21-32)
[2024-10-23 08:28] LABS: GLUCOSE 82 mg/dL (70-105); UREA NITROGEN BLOOD 11 mg/dL (9-23)
[2024-10-23 08:29] LABS: CREATININE 0.5 mg/dL (0.6-1.0)
[2024-10-23 08:32] LABS: T4 FREE 1.18 ng/dL (0.89-1.76)
[2024-10-23] MEDS ORDERED: OLME40TA18 MT (09:47)
[2024-10-23] MEDS ORDERED: NEBI10TA10 MT (09:47)
[2024-10-23] MEDS: ASPIRIN 81MG EC TABLET PO SCH (09:49)
[2024-10-23] MEDS: CLONIDINE 0.1MG TABLET PO PRN (09:59)
[2024-10-23] MEDS ORDERED: NALOXONE HCL 0.4MG/ML VIAL IV PRN (13:30)
[2024-10-23] MEDS: CLOPIDOGREL 75MG TABLET PO SCH (13:53)
[2024-10-23] MEDS ORDERED: NON FORMULARY MED XX SCH (15:45)
[2024-10-23] MEDS ORDERED: IRON SUCROSE COMPLEX 100 MG/5 ML ML IV SCH (17:00)
[2024-10-23] MEDS: ACETAMINOPHEN 325MG TABLET PO PRN (18:32)
[2024-10-23] MEDS: IRON SUCROSE COMPLEX 100 MG/5 ML ML IV SCH (18:32)
[2024-10-24] VITALS (12 sets, daily range): BP systolic 102–165; BP diastolic 57–86; PULSE 72–102; RESP 16–20; TEMP 36.3–37.7808; O2SAT 95–100
[2024-10-24 06:50] LABS: BASOPHILS % 0.6 % (0.0-2.0); DIFFERENTIAL COMMENT 0; EOSINOPHILS % 2.9 % (0.0-5.0); HEMATOCRIT. 21.1 % (36.0-48.0); LYMPHOCYTES % 9.8 % (20.0-50.0); MEAN CORPUSCULAR HEMOGLOBIN 23.1 pg (28.0-32.0); MEAN CORPUSCULAR HGB CONC 31.7 g/dL (31.0-37.0); MEAN PLATELET VOLUME 9.3 fl (7.4-10.4); MONOCYTES % 9.1 % (2.0-8.0); NEUTROPHILS % 77.6 % (40.0-76.0); PLATELET 192 x1000/uL (130-400); RED BLOOD CELL COUNT 2.89 mill/uL (4.2-5.4); RED CELL DISTRIBUTION WIDTH 21.1 % (11.6-14.6); WHITE BLOOD COUNT 9.4 x1000/uL (4.5-11.0)
[2024-10-24 06:56] LABS: FOLIC ACID (FOLATE) SERUM 13.79 ng/mL (>5.38); VITAMIN B12 SERUM 621 pg/mL (211-911)
[2024-10-24 07:15] LABS: CHLORIDE 110 mEq/L (98-107); POTASSIUM 3.2 mEq/L (3.5-5.1); SODIUM 146 mEq/L (136-145)
[2024-10-24 07:19] LABS: CALCIUM 8.4 mg/dL (8.7-10.4); CARBON DIOXIDE 27 mEq/L (21-32)
[2024-10-24 07:23] LABS: ALANINE AMINOTRANSFERASE < 7 IU/L (10-49)
[2024-10-24 07:24] LABS: CREATININE 0.6 mg/dL (0.6-1.0); GLUCOSE 103 mg/dL (70-105); UREA NITROGEN BLOOD 14 mg/dL (9-23)
[2024-10-24 07:26] LABS: ASPARTATE AMINOTRANSFERASE 14 IU/L (<34); BILIRUBIN TOTAL 0.2 mg/dL (0.1-1.0); PROTEIN TOTAL 5.6 g/dL (6.0-8.3)
[2024-10-24 07:34] LABS: BILIRUBIN DIRECT < 0.1 mg/dL (<=3.0)
[2024-10-24 09:07] LABS: FOLATE HEMATOCRIT 23.8 % (34.0-46.6)
[2024-10-24] MEDS: IOHEXOL-300 100 ML BOTTLE ONE (09:29)
[2024-10-24] MEDS: ASPIRIN 81MG EC TABLET PO SCH (10:07)
[2024-10-24 10:13] LABS: HEMOGLOBIN. 6.7 g/dL (12.0-16.0)
[2024-10-24] MEDS: POTASSIUM CHLORIDE 20MEQ/PACKET PO NR (10:15)
[2024-10-24] MEDS: PANTOPRAZOLE SODIUM 40 MG/VIAL IV SCH (10:20)
[2024-10-24 13:12] LABS: FOLATE RBC 1391 ng/mL (>498)
[2024-10-24] MEDS: MAGNESIUM 2 G PREMIX 50 ML IV NR (13:16)
[2024-10-25] VITALS (10 sets, daily range): BP systolic 140–178; BP diastolic 66–93; PULSE 79–101; RESP 16–20; TEMP 36.2–37; O2SAT 95–99
[2024-10-25] MEDS: ATORVASTATIN CALCIUM 40MG TABLET PO SCH (20:31)
[2024-10-25] MEDS: ASCORBIC ACID 250 MG TABLET PO SCH (20:32)
[2024-10-25] MEDS: SUCRALFATE 1G TABLET PO SCH (20:32)
[2024-10-25] MEDS: AMLODIPINE 5MG TABLET PO SCH (20:32)
[2024-10-26] VITALS (10 sets, daily range): BP systolic 134–151; BP diastolic 67–87; PULSE 76–104; RESP 16–20; TEMP 36.4–36.8; O2SAT 94–99
[2024-10-26] MEDS: FERROUS SULFATE 325MG TABLET PO SCH (07:04)
[2024-10-26] MEDS: HYDROCODONE/ACETAMINOPHEN 5/325MG TABLET PO PRN (13:24)
[2024-10-26 16:59] LABS: BASOPHILS % 0.3 % (0.0-2.0); EOSINOPHILS % 2.6 % (0.0-5.0); HEMATOCRIT. 26.4 % (36.0-48.0); HEMOGLOBIN. 8.2 g/dL (12.0-16.0); LYMPHOCYTES % 18.2 % (20.0-50.0); MEAN CORPUSCULAR HEMOGLOBIN 24.4 pg (28.0-32.0); MEAN CORPUSCULAR HGB CONC 31.2 g/dL (31.0-37.0); MEAN CORPUSCULAR VOLUME 78.4 fL (81.0-99.0); MONOCYTES % 11.7 % (2.0-8.0); NEUTROPHILS % 67.2 % (40.0-76.0); PLATELET 231 x1000/uL (130-400); RED BLOOD CELL COUNT 3.37 mill/uL (4.2-5.4); RED CELL DISTRIBUTION WIDTH 23.6 % (11.6-14.6); WHITE BLOOD COUNT 8.8 x1000/uL (4.5-11.0)
[2024-10-26 17:01] LABS: DIFFERENTIAL COMMENT 1
[2024-10-26 17:08] LABS: CHLORIDE 109 mEq/L (98-107); POTASSIUM 3.5 mEq/L (3.5-5.1); SODIUM 145 mEq/L (136-145)
[2024-10-26 17:09] LABS: CALCIUM 8.5 mg/dL (8.7-10.4); CARBON DIOXIDE 30 mEq/L (21-32)
[2024-10-26 17:14] LABS: CREATININE 0.5 mg/dL (0.6-1.0); GLUCOSE 116 mg/dL (70-105); UREA NITROGEN BLOOD 7 mg/dL (9-23)
[2024-10-27] VITALS (10 sets, daily range): BP systolic 133–148; BP diastolic 63–86; PULSE 70–96; RESP 17–20; TEMP 36.3–37; O2SAT 96–100
[2024-10-27 04:07] LABS: VITAMIN B1 THIAMINE WHOLE BLD 78.4 nmol/L (66.5-200.0)
[2024-10-27 05:56] LABS: PROTHROMBIN TIME 10.9 sec (9.6-11.0)
[2024-10-27 06:15] LABS: EOSINOPHILS % 4.1 % (0.0-5.0); HEMATOCRIT. 27.4 % (36.0-48.0); HEMOGLOBIN. 8.5 g/dL (12.0-16.0); LYMPHOCYTES % 16.3 % (20.0-50.0); MEAN CORPUSCULAR HEMOGLOBIN 24.4 pg (28.0-32.0); MEAN CORPUSCULAR HGB CONC 31.2 g/dL (31.0-37.0); MEAN CORPUSCULAR VOLUME 78.3 fL (81.0-99.0); MONOCYTES % 12.1 % (2.0-8.0); NEUTROPHILS % 66.5 % (40.0-76.0)
[2024-10-27 06:22] LABS: CHLORIDE 108 mEq/L (98-107); POTASSIUM 3.6 mEq/L (3.5-5.1); SODIUM 146 mEq/L (136-145)
[2024-10-27 06:23] LABS: CALCIUM 8.9 mg/dL (8.7-10.4); CARBON DIOXIDE 29 mEq/L (21-32)
[2024-10-27 06:28] LABS: CREATININE 0.6 mg/dL (0.6-1.0); GLUCOSE 92 mg/dL (70-105); UREA NITROGEN BLOOD 10 mg/dL (9-23)
[2024-10-27 06:29] LABS: ALANINE AMINOTRANSFERASE 9 IU/L (10-49); ALBUMIN 3.4 g/dL (3.2-4.8); ASPARTATE AMINOTRANSFERASE 15 IU/L (<34)
[2024-10-27 06:31] LABS: BILIRUBIN TOTAL 0.3 mg/dL (0.1-1.0)
[2024-10-27 07:08] LABS: DIFFERENTIAL COMMENT 1
[2024-10-27] MEDS ORDERED: MAGNESIUM 2 G PREMIX 50 ML IV ONE (09:45)
[2024-10-27] MEDS: MAGNESIUM 2G PREMIX 50ML IV NR (10:33)
[2024-10-28 03:14] LABS: BASOPHILS % 0.6 % (0.0-2.0); EOSINOPHILS % 3.4 % (0.0-5.0); HEMATOCRIT. 28.5 % (36.0-48.0); HEMOGLOBIN. 9.2 g/dL (12.0-16.0); LYMPHOCYTES % 7.2 % (20.0-50.0); MEAN CORPUSCULAR HEMOGLOBIN 24.9 pg (28.0-32.0); MEAN CORPUSCULAR HGB CONC 32.2 g/dL (31.0-37.0); MEAN CORPUSCULAR VOLUME 77.4 fL (81.0-99.0); MEAN PLATELET VOLUME 9.1 fl (7.4-10.4); MONOCYTES % 10.9 % (2.0-8.0); NEUTROPHILS % 77.9 % (40.0-76.0); RED BLOOD CELL COUNT 3.69 mill/uL (4.2-5.4); RED CELL DISTRIBUTION WIDTH 23.9 % (11.6-14.6); WHITE BLOOD COUNT 9.9 x1000/uL (4.5-11.0)
[2024-10-28 03:18] LABS: CARBON DIOXIDE 30 mEq/L (21-32); CHLORIDE 108 mEq/L (98-107); SODIUM 144 mEq/L (136-145)
[2024-10-28 03:24] LABS: CREATININE 0.5 mg/dL (0.6-1.0); GLUCOSE 100 mg/dL (70-105); UREA NITROGEN BLOOD 8 mg/dL (9-23)
[2024-10-28 03:26] LABS: DIFFERENTIAL COMMENT 1
[2024-10-28 03:29] LABS: ADD RBC MORPHOLOGY YES
[2024-10-28 08:00] VITALS: BP 154/68; PULSE 77; RESP 18; TEMP 36.8; O2SAT 99
[2024-10-28] MEDS ORDERED: AMIODARONE 150MG/100ML D5W 100 ML IV NR (11:30)
[2024-10-28] MEDS ORDERED: AMIODARONE HCL 900 MG in DEXT 5% WATER 482 ML IV SCH (11:30)
[2024-10-28 12:00] VITALS: BP 146/82; PULSE 88; RESP 18; TEMP 36.8; O2SAT 97
[2024-10-28 14:57] LABS: PLATELET ESTIMATE NORMAL
[2024-10-28 14:58] LABS: ANISOCYTOSIS 3+; HYPOCHROMASIA 1+; MICROCYTOSIS 1+
[2024-10-28 15:01] LABS: PLATELET 310 x1000/uL (130-400)
[2024-10-28 16:00] VITALS: BP 150/80; PULSE 100; RESP 19; TEMP 36.4; O2SAT 98
[2024-10-28 20:00] VITALS: BP 107/71; PULSE 91; RESP 19; TEMP 36.5; O2SAT 96
[2024-10-28] MEDS: DEXT 5%/0.9% NACL 1,000 ML IV SCH (22:54)
[2024-10-29] VITALS: BP 131/93; PULSE 109; RESP 20; TEMP 36.5; O2SAT 99
[2024-10-29 04:00] VITALS: BP 134/83; PULSE 101; RESP 20; TEMP 36.4; O2SAT 97
[2024-10-29 06:23] LABS: BASOPHILS % 0.8 % (0.0-2.0); EOSINOPHILS % 4.2 % (0.0-5.0); HEMATOCRIT. 29.8 % (36.0-48.0); HEMOGLOBIN. 9.4 g/dL (12.0-16.0); MEAN CORPUSCULAR HEMOGLOBIN 24.7 pg (28.0-32.0); MEAN CORPUSCULAR HGB CONC 31.4 g/dL (31.0-37.0); MEAN CORPUSCULAR VOLUME 78.8 fL (81.0-99.0); MONOCYTES % 10.5 % (2.0-8.0); NEUTROPHILS % 74.5 % (40.0-76.0); PLATELET 207 x1000/uL (130-400); RED BLOOD CELL COUNT 3.78 mill/uL (4.2-5.4); RED CELL DISTRIBUTION WIDTH 24.9 % (11.6-14.6); WHITE BLOOD COUNT 8.6 x1000/uL (4.5-11.0)
[2024-10-29 06:56] LABS: CHLORIDE 109 mEq/L (98-107); POTASSIUM 3.7 mEq/L (3.5-5.1); SODIUM 144 mEq/L (136-145)
[2024-10-29 06:57] LABS: CALCIUM 8.6 mg/dL (8.7-10.4); CARBON DIOXIDE 26 mEq/L (21-32)
[2024-10-29 07:02] LABS: CREATININE 0.5 mg/dL (0.6-1.0); GLUCOSE 95 mg/dL (70-105); UREA NITROGEN BLOOD 6 mg/dL (9-23)
[2024-10-29 07:04] LABS: ALANINE AMINOTRANSFERASE 8 IU/L (10-49); ALBUMIN 3.3 g/dL (3.2-4.8); ASPARTATE AMINOTRANSFERASE 15 IU/L (<34); BILIRUBIN TOTAL 0.4 mg/dL (0.1-1.0); DIFFERENTIAL COMMENT 1
[2024-10-29 08:00] VITALS: BP 161/96; PULSE 92; RESP 18; TEMP 36.4; O2SAT 96
[2024-10-29] MEDS: AMIODARONE 200MG TABLET PO SCH (09:30)
[2024-10-29 10:28] LABS: THYROID STIMULATING HORMONE 1.15 uIU/mL (0.55-4.78)
[2024-10-29 12:00] VITALS: BP 150/88; PULSE 97; RESP 18; TEMP 36.6; O2SAT 95
[2024-10-29 16:00] VITALS: BP 128/85; PULSE 115; RESP 18; O2SAT 97
[2024-10-29 20:00] VITALS: BP 131/68; PULSE 100; RESP 19; TEMP 36.8; O2SAT 96
[2024-10-30] VITALS: BP 121/67; PULSE 97; RESP 19; TEMP 36.5; O2SAT 97
[2024-10-30 04:00] VITALS: BP 117/75; PULSE 97; RESP 19; TEMP 36.5; O2SAT 98
[2024-10-30 07:01] LABS: CALCIUM 8.4 mg/dL (8.7-10.4); CARBON DIOXIDE 27 mEq/L (21-32); CHLORIDE 109 mEq/L (98-107); POTASSIUM 3.6 mEq/L (3.5-5.1); SODIUM 145 mEq/L (136-145)
[2024-10-30 07:06] LABS: CREATININE 0.5 mg/dL (0.6-1.0); GLUCOSE 107 mg/dL (70-105)
[2024-10-30 07:07] LABS: UREA NITROGEN BLOOD 7 mg/dL (9-23)
[2024-10-30 07:19] LABS: BASOPHILS % 0.9 % (0.0-2.0); EOSINOPHILS % 2.3 % (0.0-5.0); HEMATOCRIT. 30.5 % (36.0-48.0); HEMOGLOBIN. 9.6 g/dL (12.0-16.0); LYMPHOCYTES % 11.7 % (20.0-50.0); MEAN CORPUSCULAR HEMOGLOBIN 25.1 pg (28.0-32.0); MEAN CORPUSCULAR HGB CONC 31.4 g/dL (31.0-37.0); NEUTROPHILS % 75.1 % (40.0-76.0); RED BLOOD CELL COUNT 3.81 mill/uL (4.2-5.4); RED CELL DISTRIBUTION WIDTH 27.2 % (11.6-14.6); WHITE BLOOD COUNT 10.2 x1000/uL (4.5-11.0)
[2024-10-30 07:28] LABS: DIFFERENTIAL COMMENT 1
[2024-10-30 07:30] LABS: ADD RBC MORPHOLOGY NO
[2024-10-30 08:00] VITALS: BP 130/80; PULSE 97; RESP 18; TEMP 36.3; O2SAT 100
[2024-10-30] MEDS ORDERED: FAMOTIDINE 20MG TABLET PO SCH (09:00)
[2024-10-30 09:27] LABS: PLATELET 180 x1000/uL (130-400)
[2024-10-30] MEDS: MAGNESIUM 2G PREMIX 50ML IV NR (10:28)
[2024-10-30] MEDS: METOPROLOL TARTRATE 25MG TABLET PO SCH (10:30)
[2024-10-30 12:00] VITALS: BP 139/88; PULSE 103; RESP 18; TEMP 36.4; O2SAT 98
[2024-10-30 16:00] VITALS: BP 137/84; PULSE 99; RESP 18; TEMP 36.3; O2SAT 98
[2024-10-30 20:00] VITALS: BP 118/71; PULSE 99; RESP 19; TEMP 36.4; O2SAT 98
[2024-10-30] MEDS: FAMOTIDINE 20MG TABLET PO SCH (21:30)
[2024-10-31] VITALS: BP 118/65; PULSE 66; RESP 18; TEMP 36.9; O2SAT 100
[2024-10-31 03:45] LABS: BASOPHILS % 0.7 % (0.0-2.0); EOSINOPHILS % 3.1 % (0.0-5.0); HEMATOCRIT. 30.5 % (36.0-48.0); HEMOGLOBIN. 9.6 g/dL (12.0-16.0); LYMPHOCYTES % 15.3 % (20.0-50.0); MEAN CORPUSCULAR HEMOGLOBIN 25.6 pg (28.0-32.0); MEAN CORPUSCULAR HGB CONC 31.4 g/dL (31.0-37.0); MEAN CORPUSCULAR VOLUME 81.5 fL (81.0-99.0); MONOCYTES % 10.4 % (2.0-8.0); NEUTROPHILS % 70.5 % (40.0-76.0); PLATELET 244 x1000/uL (130-400); RED BLOOD CELL COUNT 3.75 mill/uL (4.2-5.4)
[2024-10-31 03:53] LABS: PROTHROMBIN TIME 10.6 sec (9.6-11.0)
[2024-10-31 03:57] LABS: CALCIUM 8.1 mg/dL (8.7-10.4); CARBON DIOXIDE 28 mEq/L (21-32); CHLORIDE 113 mEq/L (98-107); POTASSIUM 4.2 mEq/L (3.5-5.1); SODIUM 146 mEq/L (136-145)
[2024-10-31 04:00] VITALS: BP 118/65; PULSE 86; RESP 18; TEMP 36.1; O2SAT 99
[2024-10-31 04:02] LABS: CREATININE 0.5 mg/dL (0.6-1.0)
[2024-10-31 04:03] LABS: GLUCOSE 102 mg/dL (70-105); UREA NITROGEN BLOOD 8 mg/dL (9-23)
[2024-10-31 04:06] LABS: DIFFERENTIAL COMMENT 1
[2024-10-31 08:00] VITALS: BP 166/73; PULSE 88; RESP 18; TEMP 36.6; O2SAT 99
[2024-10-31] MEDS ORDERED: [UNRECOGNIZED DRUG - REMARK] XX SCH (08:15)
[2024-10-31] MEDS ORDERED: FAMOTIDINE 20MG TABLET PO SCH (09:00)
[2024-10-31] MEDS: MAGNESIUM 2G PREMIX 50ML IV NR (09:08)
[2024-10-31] MEDS ORDERED: ETOMIDATE 2MG/ML 10ML VIAL IV ONE (10:56)
[2024-10-31] MEDS ORDERED: ONDANSETRON HCL 4MG/2ML INJ IV PRN (11:45)
[2024-10-31] MEDS ORDERED: GLYCOPYRROLATE 0.2 MG/ML 2ML VIAL IV PRN (11:45)
[2024-10-31] MEDS ORDERED: HYDRALAZINE 20MG/ML VIAL IV PRN (11:45)
[2024-10-31 12:00] VITALS: BP 142/66; PULSE 86; RESP 18; TEMP 36.4; O2SAT 99
[2024-10-31 16:00] VITALS: BP 138/62; PULSE 85; RESP 19; TEMP 36.6; O2SAT 98
[2024-10-31] MEDS: AMIODARONE 200MG TABLET PO SCH (21:39)
[2024-10-31] MEDS: MAGNESIUM GLUCONATE 500MG TABLET PO SCH (21:40)
[2024-10-31 23:23] VITALS: BP 113/66; PULSE 84; RESP 20; TEMP 36.3; O2SAT 99
[2024-11-01 01:43] VITALS: BP 125/72; PULSE 71; RESP 19; TEMP 36.5; O2SAT 99
[2024-11-01 04:10] VITALS: PULSE 106; RESP 20; TEMP 36.7; O2SAT 96
[2024-11-01 08:00] VITALS: BP 132/69; PULSE 88; RESP 20; TEMP 36.7; O2SAT 98
[2024-11-01] MEDS ORDERED: MAGNESIUM CHLORIDE 64MG TABLET SR PO SCH ×2 (09:00)
[2024-11-01 12:00] VITALS: BP 132/66; PULSE 86; RESP 19; TEMP 36.6; O2SAT 98
[2024-11-01 14:33] VITALS: BP 132/68; PULSE 86; TEMP 97.9; O2SAT 98
[2024-11-01 18:14] LABS: BASOPHILS % 0.7 % (0.0-2.0); EOSINOPHILS % 2.6 % (0.0-5.0); HEMATOCRIT. 32.5 % (36.0-48.0); LYMPHOCYTES % 19.4 % (20.0-50.0); MEAN CORPUSCULAR HEMOGLOBIN 25.4 pg (28.0-32.0); MEAN CORPUSCULAR HGB CONC 30.9 g/dL (31.0-37.0); MEAN CORPUSCULAR VOLUME 82.2 fL (81.0-99.0); MEAN PLATELET VOLUME 9.5 fl (7.4-10.4); MONOCYTES % 11.2 % (2.0-8.0); NEUTROPHILS % 66.1 % (40.0-76.0); PLATELET 199 x1000/uL (130-400); RED BLOOD CELL COUNT 3.95 mill/uL (4.2-5.4); RED CELL DISTRIBUTION WIDTH 28.9 % (11.6-14.6); WHITE BLOOD COUNT 9.9 x1000/uL (4.5-11.0)
[2024-11-01 18:18] LABS: DIFFERENTIAL COMMENT 1
== END 2024-11-01 19:00 | disposition home or self-care (01) | DRG 811 ==
LOC: ER 22:38 → 6WST 10-22 01:08 → EDBEDREQTM 10-22 01:41 → EDBEDREQ 10-22 01:41 → EDBEDREQDT 10-22 01:41 → ER 10-22 16:37
PROVIDERS: ADMIT Internal Medicine; ATTEND Internal Medicine
PROC: 30233N1 Transfusion of Nonautologous Red Blood Cells into Peripheral Vein, Percutaneous Approach (ICD-10-PCS; principal; 2024-10-22)
PROC: 0DJ08ZZ Inspection of Upper Intestinal Tract, Via Natural or Artificial Opening Endoscopic (ICD-10-PCS; 2024-10-31)
DX: D50.9 Iron deficiency anemia, unspecified (principal); K29.71 Gastritis, unspecified, with bleeding; E87.0 Hyperosmolality and hypernatremia; I25.119 Atherosclerotic heart disease of native coronary artery with unspecified angina pectoris; I11.0 Hypertensive heart disease with heart failure; I50.9 Heart failure, unspecified; E66.01 Morbid (severe) obesity due to excess calories; E78.5 Hyperlipidemia, unspecified; K57.30 Diverticulosis of large intestine without perforation or abscess without bleeding; E83.42 Hypomagnesemia; I48.91 Unspecified atrial fibrillation; E83.51 Hypocalcemia; R51.9 Headache, unspecified; E87.8 Other disorders of electrolyte and fluid balance, not elsewhere classified; J44.9 Chronic obstructive pulmonary disease, unspecified; K44.9 Diaphragmatic hernia without obstruction or gangrene; Z96.649 Presence of unspecified artificial hip joint; I25.2 Old myocardial infarction; Z79.01 Long term (current) use of anticoagulants; Z68.31 Body mass index [BMI] 31.0-31.9, adult; Z79.02 Long term (current) use of antithrombotics/antiplatelets; Z79.82 Long term (current) use of aspirin; Z79.899 Other long term (current) drug therapy; Z88.0 Allergy status to penicillin; Z90.49 Acquired absence of other specified parts of digestive tract; Z95.5 Presence of coronary angioplasty implant and graft
CPT/HCPCS: 36415; 71045; 74177; 80048; 80053; 80076; 80305; 80320; 82248; 82550; 82553; 82607; 82746; 82747; 82962; 83540; 83550; 83735; 83880; 84425; 84439; 84443; 84481; 84484; 85014; 85018; 85025; 85044; 86850; 86900; 86920; 93005; 94070; 94640; 94664; 94760; 98960; 99285; C1893; J0282; J1940; J2470; J3475; J3490; J7042; J7060; P9016; Q9967; G0480